=== PATIENT | male | born 1995 | race American Indian/Alaskan Native ===

== ENCOUNTER 2019-06-24 10:04 | Emergency (ER) | payer SELFPAY ==
[2019-06-24 10:22] VITALS: BP 151/93
== END 2019-06-24 12:15 | disposition left against medical advice (07) ==
LOC: ED 10:04
DX: M54.2 Cervicalgia (principal); Z53.21 Procedure and treatment not carried out due to patient leaving prior to being seen by health care provider

== ENCOUNTER 2020-05-17 08:09 | Emergency (ER) | payer SELFPAY ==
[2020-05-17 08:42] VITALS: BP 158/99
[2020-05-17] MEDS ORDERED: CALCIUM CARBONATE 500 MG TAB CHEW PO NR (11:06)
--- NOTE | 2020-05-17 11:07 | Emergency Department Report ---
ED Chest Pain HPI - General Chief Complaint: Chest Pain Stated Complaint: CHEST PAIN LEFT SIDE PUI?: No Time Seen by Provider: 05/17/20 10:59 Source: patient Mode of arrival: Ambulatory Limitations: No Limitations - History of Present Illness Initial Comments: Patient is a 24-year-old -[place] male comes to the ER complaining of what he says is left-sided chest pain for months. He indicates with his hand his epigastric area. He states that it feels like gas. He states that he has not had any burping. He has no diarrhea or constipation. He reports a small brown BM this morning. Patient denies abdominal pain, nausea or vomiting. Patient states that when he sits upright the pain is actually better but when he lays down it is worse. He denies any radiating into his chest. There is no association with food or having had eaten or not eaten. Patient denies any shortness of breath with activity. He denies any fever or chills. He denies any cough. He denies any exposure to Covid. He denies any swelling to his legs. Patient denies any past medical history patient denies any surgical history. He is on no home medications daily. Patient admits to cigarette and marijuana use. Patient states that although this has been going on for couple months he felt that since it was persisting it must be serious. I have told the patient that in context of it being persistent for a couple months that if it were life- threatening he would had further development of symptoms and decline. He verbalizes understanding. On exam I think the patient is more worried that he has Covid than anything else. Patient's blood pressure slightly elevated on arrival but he is large with a BSA of 2.7. He has no shortness of breath with activity. He otherwise looks to be in good health. Patient is well developed well dressed and in no acute distress on initial exam MD Complaint: chest pain -: Gradual, month(s) Onset: during exertion Pain Location: left chest Pain Radiation: none Severity: mild Quality: other (Feels like gas) Improves With: other (Standing) Worsens With: other (Lying) re: denies: nausea, vomting, diaphoresis, dyspnea, sense of impending doom Other Symptoms: denies: cough, fever, syncope, rash, acid taste in mouth, leg swelling, palpitations, burping Treatments Prior to Arrival: none Aspirin use within the Past 7 Days: (0) No - Related Data On Oral Contraceptives: No Previous Rx's Medication Instructions Recorded Last Taken Type Magnesium Citrate 295 ml PO ONCE #1 bottle 05/17/20 Unknown Rx Allergies Allergy/AdvReac Type Severity Reaction Status Date / Time No Known Allergies Allergy Unverified 06/24/19 10:21 Heart Score - HEART Score History: Slightly suspicious EKG: Normal Age: < 45 Risk factors: No known risk factors Troponin: < normal limit HEART Score: 0 ED Review of Systems ROS: Stated complaint: CHEST PAIN LEFT SIDE Other details as noted in HPI Comment: All other systems reviewed and negative Constitutional: denies: chills, fever Eyes: denies: eye pain, eye discharge, vision change ENT: denies: ear pain, throat pain Respiratory: denies: cough, shortness of breath, wheezing Cardiovascular: denies: chest pain, palpitations Endocrine: no symptoms reported Gastrointestinal: denies: abdominal pain, nausea, diarrhea Genitourinary: denies: urgency, dysuria Musculoskeletal: denies: back pain, joint swelling, arthralgia Skin: denies: rash, lesions Neurological: denies: headache, weakness, paresthesias Psychiatric: denies: anxiety, depression Hematological/Lymphatic: denies: easy bleeding, easy bruising ED Past Medical Hx - Past Medical History Previous Medical History?: Yes Additional medical history: Obese - Surgical History Past Surgical History?: No - Family History Family history: other (Mother of trauma. CAD does not know his father.) - Social History Smoking Status: Current Every Day Smoker Substance Use Type: Alcohol, Marijuana - Medications Home Medications: Home Medications Medication Instructions Recorded Confirmed Last Taken Type Magnesium Citrate 295 ml PO ONCE #1 bottle 05/17/20 Unknown Rx ED Physical Exam - General Limitations: No Limitations General appearance: alert, in no apparent distress - Head Head exam: Present: atraumatic, normocephalic - Eye Eye exam: Present: normal appearance - ENT ENT exam: Present: mucous membranes moist - Neck Neck exam: Present: normal inspection - Respiratory Respiratory exam: Present: normal lung sounds bilaterally. Absent: respiratory distress - Cardiovascular Cardiovascular Exam: Present: regular rate, normal rhythm. Absent: systolic murmur, diastolic murmur, rubs, gallop - GI/Abdominal GI/Abdominal exam: Present: soft, normal bowel sounds - Rectal Rectal exam: Present: deferred - Extremities Exam Extremities exam: Present: normal inspection - Back Exam Back exam: Present: normal inspection - Neurological Exam Neurological exam: Present: alert, oriented X3 - Psychiatric Psychiatric exam: Present: normal affect, normal mood - Skin Skin exam: Present: warm, dry, intact, normal color. Absent: rash ED Course Vital Signs 05/17/20 08:42 Temperature 98.3 F Pulse Rate 93 H Respiratory 16 Rate Blood Pressure 158/99 [Right] O2 Sat by Pulse 98 Oximetry - Reevaluation(s) Reevaluation #1: 05/17/20 11:43 Patient has been updated on the findings of his twelve-lead and chest x-ray. He states that his diet is not the healthiest and he eats a lot of fast food. ANA score - Ana Score Age > 65: (0) No Aspirin use within the Past 7 Days: (0) No 3 or more CAD Risk Factors: (0) No 2 or more Angina events in past 24 hrs: (0) No Known CAD with more than 50% Stenosis: (0) No Elevated Cardiac Markers: (0) No ST Deviation Greater than 0.5mm: (0) No ANA Score: 0 ED Medical Decision Making - EKG Data EKG shows normal: sinus rhythm Rate: normal - EKG Data When compared to previous EKG there are: no significant change Interpretation: no acute changes, other (Early repole) - Radiology Data Radiology results: report reviewed, image reviewed interpreted by me: large amount of stool No acute process - Medical Decision Making Twelve-lead EKG noted. Pattern consistent with early repole of young - [place] male. Patient has no risk factors for acute coronary syndrome. Denies cocaine use. Patient has had this pain for a couple months. He has taken nothing for it. He has not seen a primary care doctor. Blood pressure noted to be mildly elevated in triage. Patient is obese with a 137 kg weight. However, he ambulates without shortness of breath. Patient denies any cough, fever or chills. He has no known exposure to Covid. I discussed with patient the use of alcohol and marijuana. Patient denies any anxiety. No HI or SI. Patient was given Tums to see if it helps with his feeling of fullness of his epigastric area which she stated did provide some relief. Patient ambulatory nontoxic on exam in ER. Patient has no hypotension tachycardia or fever. He is not hypoxic. Vital Signs 05/17/20 08:42 Temperature 98.3 F Pulse Rate 93 H Respiratory 16 Rate Blood Pressure 158/99 [Right] O2 Sat by Pulse 98 Oximetry X-ray noted. Patient seems to have a lot of abdominal stool. He has no consolidation or infiltrate on his chest x-ray. There is no free air under the diaphragm. Patient is being discharged home with discharge instructions including diet, activity, hydration, follow-up and medications. He verbalizes understanding. He has been given a referral to our PCP for follow-up. - Differential Diagnosis Indigestion GERD Critical care attestation.: If time is entered above; I have spent that time in minutes in the direct care of this critically ill patient, excluding procedure time. ED Disposition Clinical Impression: Constipation, Epigastric pain Disposition: DC- TO HOME OR SELFCARE Is pt being admited?: No Does the pt Need Aspirin: No Condition: Stable Instructions: Constipation, Adult Additional Instructions: Avoid alcohol and drugs. Avoid cigarettes and marijuana. Activity and diet as tolerated. High-fiber diet will help Stay well-hydrated with water. Follow-up with primary care physician for additional evaluation. Referral has been given below. [id number] Tums may help with your discomfort. Medication as ordered today. You may want to try daily Colace which can be obtained [id number] at the pharmacy. You would take 100 mg once or twice a day to prevent you from getting constipated Prescriptions: Magnesium Citrate 295 ml PO ONCE #1 bottle Referrals: RANJEET NASCIMENTO MD [Staff Physician] - 3-5 Days Time of Disposition: 11:16
--- NOTE | 2020-05-17 11:40 | XRay Report ---
ABDOMEN 5 VIEW(S) INDICATION: Abdominal pain, possible free air. COMPARISON: None available. FINDINGS: Bowel gas pattern: No significant abnormality. Free air: None seen. Stones: None seen. Chest: No acute findings. Additional Findings: No additional significant findings. IMPRESSION: 1. No acute findings. Signer Name: Jose Rafael Carmen MD Signed: 05/17/2020 11:36 AM Workstation Name: [id number]
== END 2020-05-17 11:57 | disposition home or self-care (01) ==
LOC: ED 08:09
DX: K59.00 Constipation, unspecified (principal); R10.13 Epigastric pain; E66.9 Obesity, unspecified; F17.200 Nicotine dependence, unspecified, uncomplicated; F12.90 Cannabis use, unspecified, uncomplicated; Z79.899 Other long term (current) drug therapy; Z68.38 Body mass index [BMI] 38.0-38.9, adult
CPT/HCPCS: 74022; 93005

== ENCOUNTER 2020-11-16 10:39 | Emergency (ER) | payer SELFPAY ==
[2020-11-16] MEDS ORDERED: DOCUSATE SODIUM 100 MG/10 ML ORAL LIQD PO ONE (10:50)
--- NOTE | 2020-11-16 12:12 | Emergency Department Report ---
ED ENT HPI - General Chief complaint: Earache Stated complaint: HEARING LOSS IN LEFT EAR Time Seen by Provider: 11/16/20 10:50 Source: patient Mode of arrival: Ambulatory Limitations: No Limitations - History of Present Illness Initial comments: Patient is a 25-year-old male presents emergency room complaints of hearing loss in the left ear that began yesterday. He denies any ear pain, ear drainage, anything getting into the ear, fever, vomiting, diarrhea, pain behind the ear, bleeding from the ear. No past medical history. No allergies medications. - Related Data Previous Rx's Medication Instructions Recorded Last Taken Type Magnesium Citrate 295 ml PO ONCE #1 bottle 05/17/20 Unknown Rx Allergies Allergy/AdvReac Type Severity Reaction Status Date / Time No Known Allergies Allergy Unverified 06/24/19 10:21 ED Dental HPI - General Chief complaint: Earache Stated complaint: HEARING LOSS IN LEFT EAR Time Seen by Provider: 11/16/20 10:50 Source: patient Mode of arrival: Ambulatory Limitations: No Limitations - Related Data Previous Rx's Medication Instructions Recorded Last Taken Type Magnesium Citrate 295 ml PO ONCE #1 bottle 05/17/20 Unknown Rx Allergies Allergy/AdvReac Type Severity Reaction Status Date / Time No Known Allergies Allergy Unverified 06/24/19 10:21 ED Review of Systems ROS: Stated complaint: HEARING LOSS IN LEFT EAR Other details as noted in HPI Comment: All other systems reviewed and negative ED Past Medical Hx - Past Medical History Previous Medical History?: No Additional medical history: Obese - Surgical History Past Surgical History?: No - Social History Smoking Status: Never Smoker - Medications Home Medications: Home Medications Medication Instructions Recorded Confirmed Last Taken Type Magnesium Citrate 295 ml PO ONCE #1 bottle 05/17/20 Unknown Rx ED Physical Exam - General Limitations: No Limitations General appearance: alert, in no apparent distress - Head Head exam: Present: atraumatic, normocephalic - Eye Eye exam: Present: normal appearance - ENT ENT exam: Present: mucous membranes moist, other (left canal with complete cer umen impaction unable to visualize left TM, right canal with cerumen present, able to visualize portion of right TM which is normal in appearance) - Neurological Exam Neurological exam: Present: alert, oriented X3 - Psychiatric Psychiatric exam: Present: normal affect, normal mood - Skin Skin exam: Present: warm, dry, intact ED Course Vital Signs 11/16/20 11/16/20 11/16/20 10:44 10:45 14:00 Temperature 98.5 F 98.0 F Pulse Rate 88 91 H 68 Respiratory 20 18 Rate Blood Pressure 137/93 Blood Pressure 123/79 [Right] O2 Sat by Pulse 96 98 Oximetry - Ear Wax Removal Both Ears Cerumenolytic Used: Colace Ear Canal Irrigated by: other (Kat Hernandez PA-C) Ear Canal Irrigated With: warm saline using syringe/angiocath Ear Canal(s) Curettaged: plastic loops Results: Re-examined: cerumen removed completel TM Visible: TM(s) intact, normal appe Ear Canal: atraumatic Patient Tolerated Procedure: well, no complications Complications: no problems Additional Comments: Verbal consent given by patient Liquid Colace placed in bilateral ears, warm saline with Angiocath used, loop curette used to the right canal, able to remove cerumen completely from the bilateral ear canals, patient tolerated well, no complications, no bleeding, no TM perforation, patient's hearing is completely restored ED Medical Decision Making - Medical Decision Making Patient is a 25-year-old male presents emergency room complaints of hearing loss in the left ear that began yesterday. He denies any ear pain, ear drainage, anything getting into the ear, fever, vomiting, diarrhea, pain behind the ear, bleeding from the ear. No past medical history. No allergies medications. Vitals are stable. On exam:left canal with complete cerumen impaction unable to visualize left TM, right canal with cerumen present, able to visualize portion of right TM which is normal in appearance. Examination appears consistent with cerumen impaction earwax buildup. Irrigation performed per procedure note without any complications. Patient's hearing is restored. Advised patient Follow-up with your primary care doctor. May use Debrox ear cleaning solution kit [id number] to prevent earwax buildup. Return to emergency room for new or symptoms. Do not use Q-tips in the ears. Critical care attestation.: If time is entered above; I have spent that time in minutes in the direct care of this critically ill patient, excluding procedure time. ED Disposition Clinical Impression: Cerumen impaction Qualifiers: Laterality: bilateral Qualified Code(s): H61.23 - Impacted cerumen, bilateral Disposition: DC-01 TO HOME OR SELFCARE Is pt being admited?: No Does the pt Need Aspirin: No Condition: Stable Instructions: Earwax Buildup, Adult, Ear Irrigation Additional Instructions: Follow-up with your primary care doctor. May use Debrox ear cleaning solution kit [id number] to prevent earwax buildup. Return to emergency room for new or symptoms. Do not use Q-tips in the ears. Referrals: RANJEET NASCIMENTO MD [Staff Physician] - 2-3 Days [facility] [Provider Group] - 2-3 Days Time of Disposition: 12:11 Print Language: ANGOLAN
[2020-11-16 14:01] VITALS: BP 123/79
== END 2020-11-16 12:30 | disposition home or self-care (01) ==
LOC: ED 10:39
DX: H61.23 Impacted cerumen, bilateral (principal); Z79.899 Other long term (current) drug therapy
CPT/HCPCS: 99283